=== PATIENT | male | born 1985 | race African-American/Black ===

== ENCOUNTER 2017-06-20 02:54 | Emergency (ER) | payer OTHER ==
[~2017-06-20] VITALS: Ht 182.9 cm; Wt 99.8 kg
[2017-06-20] MEDS ORDERED: AZITHROMYCIN 2250 MG PO (03:32)
[2017-06-20 03:59] VITALS: BP 126/82
== END 2017-06-20 04:01 | disposition home or self-care (01) ==
LOC: ER 02:54
DX: J02.0 Streptococcal pharyngitis (principal); A74.9 Chlamydial infection, unspecified; R11.2 Nausea with vomiting, unspecified